=== PATIENT | male | born 1985 | race Caucasian/White ===

== ENCOUNTER 2017-11-14 01:17 | Inpatient (IN) ==
[2017-11-14] MEDS ORDERED: Naloxone 0.4 MG/ML INJ IVP PRN (03:14)
--- NOTE | 2017-11-14 03:14 | Internal Med History&Physical ---
Date of Encounter: 11/14/17 Time of Encounter: 03:13 Internal Medicine - H&P: HPI Chief complaint: Overdose Admitted From: Hospital to Hospital Transfer Plans for Post Hospital Care: Home History of present illness: Mr. Martinez is a 32 year old male with history of IV drug use, methamphetamine use, multiple infections who presented to [facility] via EMS for drug overdose. The patient was apparently in custody of police following an attempted car theft at which time he became agitated. He apparently admitted to ingesting 5 mg of meth which she was attempting to hide from the police when he was taken in. In the [facility] he was described to have muscle spasms which appeared to be seizure-like activity including muscle rigidity and significant agitation. Poison control was contacted and the patient was given IV fluids along with 4 mg of IV Ativan. Following that, the patient relaxed. He was found to have vitals are relatively stable including a temperature of 97.5, a pulse rate which initially was 1:30 and had dropped to 96, respiratory rate 20, blood pressure 118/62. Initial lab analysis demonstrates white blood cell 17.5 , hemoglobin 14.6, hematocrit 14.8, bicarbonate 20, creatinine 1.75. UDS was positive for opiates and amphetamines. Initial CK 187. According to personnel from [facility], the patient is apparently well known to the police and the area and they say that he does have a history of IV drug use. Additionally, he has apparently had a history of HIV/AIDS, and Hepatitis, however this has not been verified in any medical records. It is unknown whether or not the patient was taking any medications for these conditions. Social history, family history, surgical history was unable to be obtained due to the patient's mental status. Past Med Surg Social Fam HX - Past Medical History Medical history: HIV/AIDS, hypertension Additional medical history: HEPATITIS AND HIV Psychiatric history: anxiety, panic disorder - Past Surgical History Additional surgical history: R hip. L leg. L shoulder - Social History Smoking Status: Current every day smoker Smokeless Tobacco Status: No Alcohol use: occasionally Drug use: cocaine, opiates, methamphetamine, IV Drug Use, prescription drug abuse Internal Medicine - H&P: Meds No Known Home Drugs 08/24/16 [History] 3 Allergy/AdvReac Type Severity Reaction Status Date / Time No Known Allergies Allergy Verified 11/13/17 23:19 ROS unobtainable: due to mental status All Systems PM: A 10-system review of systems was performed and is negative for pertinent findings except as documented above in the HPI. - Constitutional Exam: Gen: Vitals noted. No acute distress. Sedated HEENT: Normocephalic. Ecchymosis present on the superior palpebral folds. Upon lifting of left eyelid, there was weeping of thin purulent fluid. Pupils pinpoint, b/l sclera injected, conjunctiva injected Neck: Supple. No adenopathy. Cardiac: RRR, no murmur, +S1/S2 Pulmonary: CTA bilaterally, no wheezes, rales or rhonchi, equal chest expansion Abdomen: soft, nontender, no guarding Back: Nontender throughout. Extremities: Trace nonpitting edema in all 4 extremities, no cyanosis or clubbing Neuro: Patient is sedated but does withdraw to pain and occasionally responds to physical stimuli - Assessment and plan (1) Encephalopathy acute Current Visit: Yes Status: Acute Assessment and plan: Drug-induced, Secondary to methamphetamine overdose Poison control was contacted from [facility] Recommended IV fluid and benzodiazepines as needed for symptom management We will use IV Ativan as needed Monitor for agitation and seizure like activity (2) Bilateral conjunctivitis Current Visit: Yes Status: Acute Assessment and plan: Purulent conjunctivitis noted bilaterally Worsening acutely, suspect possible orbital cellulitis We will start erythromycin ointment now, get stat CT Ophtho consult in the morning Qualifiers: Conjunctivitis type: acute Acute conjunctivitis type: bacterial Qualified Code(s): H10.33 - Unspecified acute conjunctivitis, bilateral (3) Overdose by amphetamine Current Visit: Yes Status: Acute Assessment and plan: Overdose due to ingestion of amphetamine Patient apparently admitted to ingestion of 5 mg methamphetamine He has received 4 mg IV Ativan [facility] which has returned his vitals to a stable condition We will continue to monitor his clinical status, give Ativan as needed Admitted to ICU for close monitoring Qualifiers: Encounter type: initial encounter Injury intent: undetermined intent Qualified Code(s): T43.624A - Poisoning by amphetamines, undetermined, initial encounter (4) Leukocytosis Current Visit: Yes Status: Acute Assessment and plan: Leukocytosis of unknown origin however likely reactive to acute overdose Patient presented to ED with white blood cell count 17.5 According to police the patient may have history of HIV/AIDS, however it is unknown whether or not this has been treated There is no evidence of infection at this time, patient is afebrile, heart rate normal, normotensive. I do not feel that there is any indication to treat this as an acute infection at this time, however we will continue to monitor closely Qualifiers: Leukocytosis type: leukemoid reaction Qualified Code(s): D72.823 - Leukemoid reaction (5) JOSÉ MIGUEL (acute kidney injury) Current Visit: Yes Status: Acute Assessment and plan: Acute kidney injury, likely secondary to acute methamphetamine intoxication Serum creatinine 1.75, BUN 15 Patient received 3L IVF at [facility] and now appears volume overloaded I will check urine electrolytes, repeat CK and BMP at 7am (6) DVT prophylaxis Current Visit: Yes Status: Acute - Time Spent With Patient Total time spent is greater than 50% in coordination of care (as documented) at patient's floor/unit and/or counseling patient:
[2017-11-14] MEDS ORDERED: *HR* LORazepam 2 MG/ML VIAL IVP PRN ×4 (04:06→09:40)
[2017-11-14 05:33] LABS: Sodium, Urine 214.4 mEq/L
[2017-11-14] MEDS: Erythromycin OPTH Oint BOTH EYES SCH ×2 (05:34→07:53)
--- NOTE | 2017-11-14 08:21 | Electrocardiograph Report ---
[address] [address] Test Date: 2017-11-14 Pat Name: Elver Martinez Department: 109 Room: 02 Gender: M Car [employer]ner: : 1985 Requested By: Damion Albright Order Number: [id number] Reading MD: Nuria Vitale Measurements Intervals [place] Rate: 77 P: 67 FL: 130 QRS: 76 QRSD: 98 T: 50 QT: 390 QTc: 422 Interpretive Statements SINUS RHYTHM Q WAVES INFERIOR AND LATERAL LEADS, CONSIDER NORMAL VARIANT Electronically Signed On 11-14-2017 8:19:46 EDT by Nuria Vitale
[2017-11-14] MEDS ORDERED: cefTRIAXone 1,000 MG in Water for inj. (sterile) 20 ML 10 ML IVP SCH (09:00)
[2017-11-14 09:10] LABS: Basophils # 0.1 K/mcL (0.0-0.2); Basophils % 0.9 %; Eosinophils # 0.1 K/mcL (0.0-0.6); Eosinophils % 1.6 %; Hematocrit 42.7 % (37.5-50.1); Hemoglobin 13.8 g/dL (12.9-16.9); Immature Granulocytes % 0.3 % (0-4); Lymphocytes # 3.8 K/mcL (0.6-4.6); Lymphocytes % 47.3 %; Mean Corpuscular HGB Conc 32.3 g/dL (31.6-35.5); Mean Corpuscular Hemoglobin 28.6 pg (28.0-33.3); Mean Corpuscular Volume 88.6 fL (83.0-100.0); Mean Platelet Volume 10.7 fL (9.4-12.4); Monocytes # 0.7 K/mcL (0.0-1.3); Monocytes % 8.9 %; Neutrophils # 3.3 K/mcL (1.6-8.9); Platelet Count 253 K/mcL (140-400); Red Blood Count 4.82 M/mcL (4.19-5.50); Red Cell Distribution Width 13.4 % (11.5-14.5)
--- NOTE | 2017-11-14 09:22 | Internal Med Progress Note ---
Hospitalist Progress Note - Encounter Date of Encounter: 11/14/17 - Exam Vitals: Temp Pulse Resp BP Pulse Ox 97.5 F L 79 16 118/78 100 11/14/17 07:40 11/14/17 08:00 11/14/17 08:00 11/14/17 08:00 11/14/17 08:00 - Time Spent with Patient Total time spent is greater than 50% in coordination of care (as documented) at patient's floor/unit and/or counseling patient: Internal Medicine: Result - Labs CBC & Chem 7: 11/14/17 08:32 Labs: Short CBC 11/14/17 Range/Units 08:32 WBC 8.0 D (4.3-11.1) K/mcL Hgb 13.8 (12.9-16.9) g/dL Hct 42.7 (37.5-50.1) % Plt Count 253 (140-400) K/mcL Neutrophils # 3.3 (1.6-8.9) K/mcL - Impressions Impressions Face CT 11/14/17 04:59 IMPRESSION: Consistent with left periorbital (preseptal) cellulitis. D/ / Damion Sewell MD / Damion Sewell MD Interpreting Provider: Damion Sewell MD Consult Discharge Plan - Plan Referrals: NONE,PCP [Primary Care Provider] -
[2017-11-14 09:30] LABS: Alanine Aminotransferase 37 Units/L (7-52); Albumin 4.2 g/dL (3.5-5.7); Albumin/Globulin Ratio 1.4 (1.1-2.2); Alkaline Phosphatase 75 Units/L (34-104); Aspartate Amino Transferase 23 Units/L (13-39); BUN/Creatinine Ratio 17 (6-26); Bilirubin,Total 0.4 mg/dL (0.3-1.0); Blood Urea Nitrogen 15 mg/dL (6-20); Calcium 8.9 mg/dL (8.6-10.3); Carbon Dioxide 22 mEq/L (23-29); Chloride 109 mEq/L (98-107); Creatine Kinase 145 Units/L (30-223); Globulin 2.9 g/dL (2.4-3.5); Glucose 88 mg/dL (70-105); Osmolality,Calculated 288 (280-300); Potassium 3.6 mEq/L (3.5-5.1); Sodium 139 mEq/L (136-145); Total Protein 7.1 g/dL (6.4-8.9); eGFR For Non-African Americans > 60 (> 60)
[2017-11-14] MEDS ORDERED: Nicotine 14 MG PATCH.TD24 TD SCH (09:45)
[2017-11-14] MEDS ORDERED: Ibuprofen 400 MG TABLET PO PRN (11:10)
[2017-11-14 12:31] VITALS: BP 117/74
[2017-11-14 12:44] LABS: HIV-1&2 Antibody & p24 Ag Nonreactive (Nonreactive); Hepatitis B Surface Antigen Nonreactive (Nonreactive)
[2017-11-14] MEDS ORDERED: Aminoglycoside Consult 1 EACH MC ONE (13:32)
--- NOTE | 2017-11-14 13:51 | Discharge Summary ---
<Eloy Salgado - Last Filed: 11/14/17 14:48> - NOTES TO OUTPATIENT PROVIDER Notes to Outpatient Provider: Patient left AMA after being transferred out of the ICU to nurses unit. He still had an IV in as he was receiving antibiotics. He was recommended by ophtho to start on Augmentin and antibiotic drops for his preseptal cellulitis Orders not resulted at time of discharge: Pending orders 11/14/17 04:55 Culture,Eye [RM] Routine 11/14/17 07:39 Culture,Blood [BC] Routine 11/14/17 08:32 HIV-1&2 Antibody & p24 Ag Routine Viral hepatitis panel [Hepatitis Prof.(Routine A,B,C)] Routine 11/14/17 12:32 Lactic Acid Stat Date of Encounter: 11/14/17 Time of Encounter: 13:52 - Discharge Diagnosis (1) Methamphetamine intoxication Priority: Primary Status: Acute (2) Preseptal cellulitis Priority: Secondary Status: Acute (3) JOSÉ MIGUEL (acute kidney injury) Priority: Secondary Status: Acute (4) Leukocytosis Priority: Secondary Status: Acute Qualifiers: Leukocytosis type: leukemoid reaction Qualified Code(s): D72.823 - Leukemoid reaction Hospital course: Mr. Martinez is a 32 year old male with past medical history of IV drug abuse, daily heroin usage as well as meth use. He was transferred to [facility] from [place] and presented for swollen eyes bilaterally. Objectively patient had pain, pressure, and decreased visual acuity. Eyes were injected, exudative with clear fluid, crusted with erythematous eyelids. Patient afebrile, no leukocytosis, had lactic acidosis. Upon admission patient received prn Ativan for withdrawal prophylaxis as well as topical and IV Vancomycin and Rocephin for suspected pre- septal cellulitis, as recommended by ophthalmology. CT Face was consistent with pre-septal cellulitis. Patient received prn Ibuprofen for pain. Patient left AMA after being transferred out of the ICU. Discharge discussed with: other (patient left AMA, discussed with nursing staff after he left) - Time Spent with Patient Total time spent providing and/or coordinating discharge services: - Discharge Medications Home Medications: No Known Home Drugs 08/24/16 [History] Allergies/Adverse Reactions: 3 Allergy/AdvReac Type Severity Reaction Status Date / Time No Known Allergies Allergy Verified 11/14/17 07:58 Date of admission: 11/14/17 07:35 Primary care physician: PCP NONE Consults: 11/14/17 05:14 Consult to Physician [CONS] Routine Consulting Provider: Chano Anderson Reason for Consult: Endophthalmitis vs orbital cellulitis Call Completed: No 11/14/17 09:40 Consult to Linen Folder [CONS] Routine Reason for SW Consult: daily heroin user, recent meth overdose Discharging clinician: Eloy Salgado Anticipated date of discharge: 11/14/17 - Constitutional Vitals: Temp Pulse Resp BP Pulse Ox 97.9 F 65 16 117/74 99 11/14/17 12:31 11/14/17 12:31 11/14/17 12:31 11/14/17 12:31 11/14/17 12:31 General appearance: Present: cooperative, mild distress - Head Head exam: Present: atraumatic, normocephalic - Eye Eye exam: Present: periorbital swelling - Neck Neck exam general surgery: Present: supple, trachea midline. Absent: lymphadenopathy - Respiratory Respiratory exam: Present: CTAB. Absent: accessory muscle use, rales, rhonchi, wheezes - Cardiovascular Cardiovascular exam: Present: RRR, +S1, +S2. Absent: diastolic murmur, gallop, rubs, systolic murmur - GI/Abdominal GI/Abdominal exam: Present: normal bowel sounds, soft, no peritoneal signs. Absent: distended, tenderness - Extremities Exam Extremities exam: Present: warm, radial pulses palpable and symmetrical. Absent : calf tenderness, cyanotic, pedal edema - Neurological Exam Neurological exam: Present: alert, no focal deficits. Absent: facial droop, speech deficit - Skin Skin exam: Present: dry, intact - Patient Status Disposition: Left Against Medical Advice Condition: Serious Functional capacity at discharge: independent ambulation Overall status at discharge: patient is progressing back to baseline - Discharge Instructions Follow Up With: NONE,PCP [Primary Care Provider] - - Diet and Activity Activity: increase activity as tolerated Diet: advance to your usual diet <Heath Adbi - Last Filed: 11/14/17 22:06> Orders not resulted at time of discharge: Pending orders 11/14/17 04:55 Culture,Eye [RM] Routine 11/14/17 07:39 Culture,Blood [BC] Routine 11/14/17 08:32 HIV-1&2 Antibody & p24 Ag Routine Viral hepatitis panel [Hepatitis Prof.(Routine A,B,C)] Routine Date of Encounter: 11/14/17 Hospital course: Mr. Martinez is a 32 year old male - Time Spent with Patient Total time spent providing and/or coordinating discharge services: Date of admission: 11/14/17 07:35 Primary care physician: PCP NONE Consults: 11/14/17 05:14 Consult to Physician [CONS] Routine Consulting Provider: Chano Anderson Reason for Consult: Endophthalmitis vs orbital cellulitis Call Completed: No 11/14/17 09:40 Consult to Linen Folder [CONS] Routine Reason for SW Consult: daily heroin user, recent meth overdose - Constitutional Vitals: Temp Pulse Resp BP Pulse Ox 97.9 F 65 16 117/74 99 11/14/17 12:31 11/14/17 12:31 11/14/17 12:31 11/14/17 12:31 11/14/17 12:31 - Attending Attestation I examined this patient and my medical decision-making was reviewed with the Resident Physician Dr. Partida. I agree with the documented findings, disposition and treatment plan as described except to the extent set forth below.
[2017-11-15 02:27] LABS: Hepatitis A Antibody IgM Nonreactive (Nonreactive); Hepatitis B Core IgM Nonreactive (Nonreactive)
[2017-11-15 02:31] LABS: Hepatitis C Virus Antibody Reactive (Nonreactive)
== END 2017-11-14 13:33 | disposition left against medical advice (07) | DRG 917 ==
LOC: 2NNU → ICNU 03:11 → SUATTDRO 07:35 → 3ANU 12:03
PROVIDERS: ADMIT Internal Medicine; ATTEND Student in an Organized Health Care Education/Training Program

== ENCOUNTER 2019-03-10 20:31 | Observation (INO) ==
[2019-03-10] MEDS ORDERED: Naloxone 0.4 MG/ML INJ IVP PRN (23:40)
[2019-03-11 00:10] LABS: Bilirubin,Urine Negative (Negative); Blood,Urine Negative (Negative); Clarity,Urine Clear (Clear); Color,Urine Yellow (Yellow); Glucose,Urine (UA) Normal (Normal); Ketones,Urine Negative (Negative); Leukocyte Esterase,Urine Negative (Negative); Nitrite,Urine Negative (Negative); PH,Urine 5.5 pH Units (5.0-8.0); Protein,Urine Negative (Neg-Trace); Specific Gravity,Urine 1.019 (1.010-1.025); Urobilinogen,Urine Normal (Normal)
[2019-03-11 00:40] LABS: Amphetamine Screen,Urine Positive ng/mL (Cutoff=1000); Barbiturate Screen,Urine Negative ng/mL (Cutoff=200); Benzodiazepines Screen,Urine Negative ng/mL (Cutoff=200); Cannabinoid Screen,Urine Negative ng/mL (Cutoff = 50); Cocaine Screen,Urine Positive ng/mL (Cutoff= 300); Opiate Screen,Urine Positive ng/mL (Cutoff=300); Phencyclidine Screen,Urine Negative ng/mL (Cutoff=25)
[2019-03-11] MEDS ORDERED: 0.9 % Sodium Chloride 1,000 ML IVC SCH (01:00)
[2019-03-11 01:46] VITALS: BP 134/72
== END 2019-03-11 01:15 | disposition left against medical advice (07) ==
LOC: ICNU
PROVIDERS: ADMIT Family Medicine; ATTEND Family Medicine